=== PATIENT | male | born 1945 | race African-American/Black ===

== ENCOUNTER 2019-04-11 07:40 | Emergency (ER) | payer OTHER ==
[~2019-04-11] VITALS: Ht 170.2 cm; Wt 95.0 kg
[~2019-04-11 07:40] MED LIST: INS7030 SUBCUT; LOSA1TAB34 MT; METF-414 MT
[2019-04-11] MEDS ORDERED: ENALAPRIL 2.5MG/2ML VIAL 2ML IV ONE (10:30)
[2019-04-11 10:42] LABS: BASOPHILS % 1.4 % (0.0-2.0); EOSINOPHILS % 2.3 % (0.0-5.0); HEMATOCRIT. 42.7 % (42.0-52.0); HEMOGLOBIN. 14.4 g/dL (14.0-18.0); LYMPHOCYTES % 39.9 % (20.0-50.0); MEAN CORPUSCULAR HEMOGLOBIN 29.5 pg (28.0-32.0); MEAN CORPUSCULAR VOLUME 87.3 fL (80.0-94.0); MEAN PLATELET VOLUME 7.5 fl (7.4-10.4); MONOCYTES % 9.8 % (2.0-8.0); NEUTROPHILS % 46.6 % (40.0-76.0); PLATELET 223 x1000/uL (130-400); RED BLOOD CELL COUNT 4.89 mill/uL (4.7-6.1); RED CELL DISTRIBUTION WIDTH 14.9 % (11.6-14.6)
[2019-04-11 10:46] LABS: CHLORIDE 105 mEq/L (98-107)
[2019-04-11] MEDS ORDERED: ASPIRIN 81MG TABLET PO ONE (11:45)
[2019-04-11] MEDS ORDERED: ENALAPRIL 1.25MG/ML VIAL 1ML IV SCH (12:30)
[2019-04-11] MEDS ORDERED: LOSARTAN POTASSIUM 100 MG TABLET PO SCH (14:00)
[2019-04-11] MEDS ORDERED: CLONIDINE 0.1MG TABLET PO PRN (14:00)
[2019-04-11] MEDS ORDERED: DEXTROSE 50% WATER 50ML SYRINGE IV PRN (14:00)
[2019-04-11] MEDS ORDERED: HYDRALAZINE 20MG/ML VIAL IV NR (16:00)
[2019-04-11] MEDS ORDERED: BLOOD SUGAR DIAGNOSTIC STRIP TEST SCH (17:00)
[2019-04-11] MEDS ORDERED: INSULIN LISPRO 100 UNITS/ML SUBCUT SCH (18:20)
[2019-04-11 19:00] VITALS: BP 186/94
[2019-04-11] MEDS ORDERED: ATORVASTATIN CALCIUM 40MG TABLET PO SCH (21:00)
[2019-04-11] MEDS ORDERED: AMLODIPINE 5MG TABLET PO SCH (21:00)
[2019-04-11] MEDS ORDERED: METOPROLOL TARTRATE 50MG TABLET PO SCH (21:00)
[2019-04-12] MEDS ORDERED: ASPIRIN 81MG TABLET PO SCH (09:00)
== END 2019-04-11 19:19 | disposition short-term general hospital (02) ==
LOC: ER 07:40 → EDBEDREQTM 13:33 → EDBEDREQ 13:33 → ER 19:19 → CANBEDREQ 23:41
DX: R06.09 Other forms of dyspnea (principal); R07.9 Chest pain, unspecified; I10 Essential (primary) hypertension; E11.9 Type 2 diabetes mellitus without complications; Z79.899 Other long term (current) drug therapy
CPT/HCPCS: 36415; 71045; 80053; 83690; 83880; 84484; 85025; 93005; 96374; 99285; J0360; J3490